=== PATIENT | female | born 1975 | race Caucasian/White ===

== ENCOUNTER 2017-11-24 00:12 | Emergency (ER) | payer MEDICAID ==
[~2017-11-24] VITALS: Ht 165.1 cm; Wt 102.1 kg
[2017-11-24 00:16] VITALS: BP 165/95
[2017-11-24] MEDS ORDERED: DICYCLOMINE HCL LIQUID 20 MG, ALUMINUM HYD/MAG/SIMETHICONE 30 ML, LIDOCAINE VISCOUS 2% ... PO ONE ×3 (01:20)
[2017-11-24 02:31] LABS: ALBUMIN 3.6 g/dL (3.4-5.0); ANION GAP 17.9 (8-16); CARBON DIOXIDE 23.2 mmol/L (21-32); POTASSIUM 4.1 mmol/L (3.5-5.1); TOTAL BILIRUBIN 0.1 mg/dL (0.0-1.0)
[2017-11-24 02:34] LABS: BASOPHILS # (AUTO) 0.1 K/uL (0.00-0.22); BASOPHILS % (AUTO) 1.2 % (0.0-2.0); EOSINOPHILS # (AUTO) 0.2 K/uL (0-0.4); EOSINOPHILS % (AUTO) 2.8 % (0.0-4.0); HEMOGLOBIN 10.5 g/dL (12.0-16.0); LYMPHOCYTES # (AUTO) 2.2 K/uL (2.5-16.5); LYMPHOCYTES % (AUTO) 32.7 % (20.5-51.1); MEAN CORPUSCULAR HEMOGLOBIN 16 pg (27-31); MEAN CORPUSCULAR HGB CONC 19 g/dL (33-37); MEAN CORPUSCULAR VOLUME 83.8 fL (80-94); MONOCYTES # (AUTO) 0.3 K/uL (0.8-1.0); MONOCYTES % (AUTO) 5.1 % (1.7-9.3); NEUTROPHILS # (AUTO) 3.9 K/uL (1.8-7.7); NEUTROPHILS % (AUTO) 58.2 % (42.2-75.2); PLATELET COUNT (AUTO) 340 K/uL (140-450); RED BLOOD CELL COUNT(AUTO) 6.48 MIL/uL (4.20-5.40); WHITE BLOOD COUNT (AUTO) 6.7 K/uL (4.8-10.8)
[2017-11-24 02:38] LABS: CREATINE KINASE MB 0.7 ng/mL (0-3.6)
[2017-11-24 02:41] LABS: HEMATOCRIT 31.5 % (36-48)
[2017-11-24] MEDS ORDERED: ONDANSETRON 4 MG ODT PO ONE (02:45)
[2017-11-24] MEDS ORDERED: NACL 0.9% 2,000 ML IV ONE (02:45)
[2017-11-24] MEDS ORDERED: INSULIN REGULAR, HUMAN 100 UNIT/ML VIAL IVP ONE (03:10)
[2017-11-24 05:50] VITALS: BP 113/59
== END 2017-11-24 05:50 | disposition home or self-care (01) ==
LOC: MED 00:12
DX: J20.9 Acute bronchitis, unspecified (principal); E11.65 Type 2 diabetes mellitus with hyperglycemia; I10 Essential (primary) hypertension; F03.90 Unspecified dementia, unspecified severity, without behavioral disturbance, psychotic disturbance, mood disturbance, and anxiety
CPT/HCPCS: 36415; 71045; 76705; 80053; 81002; 81025; 82550; 82553; 82948; 83690; 83880; 84484; 85025; 85379; 93005; 96361; 96374; 99285; J1815; J7030; Q0092; S0119

== ENCOUNTER 2018-10-04 15:55 | Emergency (ER) | payer MEDICAID ==
[~2018-10-04] VITALS: Ht 162.6 cm; Wt 103.0 kg
[2018-10-04 16:26] VITALS: BP 148/86
--- NOTE | 2018-10-04 16:35 | NUR ---
Note undone in EDM - 10/04/18 at 1649 by [facility] BIB SIGNIFICANT OTHER. AAO X4 C/O MID ABD PAIN OF 7/10 SINCE LAST NIGHT WITH VOMITING THIS MORNING X 3 EPISODES, + NAUSEA, - DIARRHEA, LBM: 10/04/18 AND PAIN IN JG LEG PAIN OF 01/16. PT STATES POUNDING HEADACHE OF 02/16. DENIES SOB. HOB UP. BED SIDE RAILS UP X1. ON LOW BED POSITION, LOCKED. MD PIÑA MADE AWARE OF PT STATUS.
--- NOTE | 2018-10-04 16:38 | NUR ---
Patient ambulated to bed 6. RN evaluating patient at bedside.
--- NOTE | 2018-10-04 16:38 | NUR ---
BIB SIGNIFICANT OTHER. AAO X4 C/O MID ABD PAIN OF 7/10 SINCE LAST NIGHT WITH VOMITING THIS MORNING X 3 EPISODES, + NAUSEA, - DIARRHEA, LBM: 10/04/18 AND PAIN IN JG LEG PAIN OF 01/16. PT STATES POUNDING HEADACHE OF 02/16. DENIES SOB. HOB UP. BED SIDE RAILS UP X1. ON LOW BED POSITION, LOCKED. ER MADE AWARE OF PT STATUS.
--- NOTE | 2018-10-04 17:09 | NUR ---
Dr. Willett evaluating patient at bedside.
[2018-10-04] MEDS ORDERED: NACL 0.9% 1,000 ML IV SCH (17:19)
[2018-10-04] MEDS ORDERED: NACL 0.9% 1,000 ML IV ONE (17:19)
[2018-10-04] MEDS ORDERED: KETOROLAC 30 MG/ML VIAL IVP ONE (17:20)
[2018-10-04] MEDS ORDERED: MORPHINE SULFATE 4 MG/ML SYR IVP ONE (17:20)
[2018-10-04] MEDS ORDERED: PROMETHAZINE 25 MG/ML VIAL IM ONE (17:20)
[2018-10-04 17:39] LABS: APPEARANCE,URINE HAZY (CLEAR); BILIRUBIN,URINE 1+ (NEGATIVE); BLOOD, URINE NEGATIVE (NEGATIVE); COLOR,URINE YELLOW (YELLOW); LEUKOCYTE ESTERASE ,URINE NEGATIVE (NEGATIVE); NITRITE, URINE NEGATIVE (NEGATIVE); UGLUCOSE 3+ (NEGATIVE)
[2018-10-04 18:01] LABS: BASOPHILS % (AUTO) 0.4 % (0.0-2.0); EOSINOPHILS # (AUTO) 0.1 K/uL (0-0.4); EOSINOPHILS % (AUTO) 0.8 % (0.0-4.0); HEMATOCRIT 42.9 % (36-48); HEMOGLOBIN 14.5 g/dL (12.0-16.0); LYMPHOCYTES # (AUTO) 1.8 K/uL (2.5-16.5); LYMPHOCYTES % (AUTO) 21.5 % (20.5-51.1); MEAN CORPUSCULAR HEMOGLOBIN 28 pg (27-31); MEAN CORPUSCULAR HGB CONC 34 g/dL (33-37); MEAN CORPUSCULAR VOLUME 82.9 fL (80-94); MONOCYTES # (AUTO) 0.4 K/uL (0.8-1.0); MONOCYTES % (AUTO) 4.9 % (1.7-9.3); NEUTROPHILS # (AUTO) 6.2 K/uL (1.8-7.7); NEUTROPHILS % (AUTO) 72.4 % (42.2-75.2); PLATELET COUNT (AUTO) 269 K/uL (140-450); RED BLOOD CELL COUNT(AUTO) 5.18 MIL/uL (4.20-5.40); RED CELL DISTRIBUTION WIDTH 14.2 % (11.6-13.7); WHITE BLOOD COUNT (AUTO) 8.6 K/uL (4.8-10.8)
[2018-10-04 18:14] LABS: ANION GAP 12.6 (8-16); CARBON DIOXIDE 26.3 mmol/L (21-32); CREATININE 0.7 mg/dL (0.6-1.3); POTASSIUM 3.9 mmol/L (3.5-5.1)
[2018-10-04 18:19] LABS: ALBUMIN 3.6 g/dL (3.4-5.0); TOTAL BILIRUBIN 0.3 mg/dL (0.0-1.0)
--- NOTE | 2018-10-04 19:15 | NUR ---
Pt report given to BOYD Hartley. Transfer of care at this time.
--- NOTE | 2018-10-04 19:31 | NUR ---
IV removed, catheter intact and site benign. Applied folded 4x4 gauze and tape to stop bleeding.
--- NOTE | 2018-10-04 19:31 | NUR ---
Patient discharged with v/s stable. Written and verbal after care instructions given and explained. Patient alert, oriented and verbalized understanding of instructions. Ambulatory with steady gait. All questions addressed prior to discharge. ID band removed. Patient advised to follow up with PMD. Rx of FAMOTIDINE, PROTONIX, REGLAN given. Patient educated on indication of medication including possible reaction and side effects. Opportunity to ask questions provided and answered.
[2018-10-04 19:33] VITALS: BP 140/78
== END 2018-10-04 19:31 | disposition home or self-care (01) ==
LOC: MED 15:55
DX: K29.70 Gastritis, unspecified, without bleeding (principal); E11.43 Type 2 diabetes mellitus with diabetic autonomic (poly)neuropathy; K31.84 Gastroparesis; I10 Essential (primary) hypertension; Z90.49 Acquired absence of other specified parts of digestive tract
CPT/HCPCS: 36415; 74176; 80053; 81003; 81025; 82150; 82948; 83690; 85025; 96361; 96372; 96374; 96375; 99284; J1885; J2270; J2550; J7030

== ENCOUNTER 2019-03-03 20:36 | Emergency (ER) | payer MEDICAID ==
[~2019-03-03] VITALS: Ht 165.1 cm; Wt 102.5 kg
[2019-03-03 20:58] VITALS: BP 129/88
--- NOTE | 2019-03-03 21:13 | NUR ---
PT AMBULATED TO BED 07 WITH STEADY GAIT.
--- NOTE | 2019-03-03 21:25 | NUR ---
PA AT BEDSIDE EVAUATING PATIENT.
[2019-03-03] MEDS ORDERED: ONDANSETRON 4 MG ODT PO ONE (21:30)
[2019-03-03] MEDS ORDERED: HYDROcodone/APAP 5/325 MG 1 TAB TAB PO ONE (21:30)
[2019-03-03] MEDS ORDERED: cefTRIAXone 1,000 MG in LIDOCAINE MPF 1% - 5 mL VIAL 2.1 ML IM ONE (21:30)
--- NOTE | 2019-03-03 21:32 | NUR ---
PT WOUND COVERED WITH NON ADHERENT DRESSING, THEN COVERED WITH ISLAND WOUND DRESSING
--- NOTE | 2019-03-03 21:32 | NUR ---
43 Y/O FEMALE BIB DAUGHTER C/P OPEN, DRAINING ABSCESS TO RIGHT CREASE BETWEEN GROIN AND THIGH. ABCESS WIH DRAINAGE NOTED ON UPPER RIGHT BETWEN THIGH AND GROIN. PAIN IS A 8/10 SHARP PAIN WITH NOTED SURROUNDING ERYTHEMA. PA/ERMD MADE AWARE OF STATUS. SIDE RAILX1. PATIENT IS A/O X4 AND IS CALM AND COOPERATIVE. PMH-- DMII, HTN RX-- [facility]US
[2019-03-03 22:10] VITALS: BP 125/79
--- NOTE | 2019-03-03 22:10 | NUR ---
Patient discharged with v/s stable. Written and verbal after care instructions given and explained. Patient alert, oriented and verbalized understanding of instructions. Ambulatory with steady gait. All questions addressed prior to discharge. ID band removed. Patient advised to follow up with PMD. Rx of IBUPROFEN 600MG; KEFELX 500MG; PROMETHAZINE DM 6.25MG-15MG/5ML; 1-2TSP;BACTRIM DS 800-160MG 1 TAB given. Patient educated on indication of medication including possible reaction and side effects. Opportunity to ask questions provided and answered.
== END 2019-03-03 22:10 | disposition home or self-care (01) ==
LOC: MED 20:36
DX: L02.214 Cutaneous abscess of groin (principal); L03.818 Cellulitis of other sites; E11.9 Type 2 diabetes mellitus without complications; I10 Essential (primary) hypertension
CPT/HCPCS: 96372; 99283; J0696; J2001; Q0162

== ENCOUNTER 2019-07-02 21:10 | Emergency (ER) | payer MEDICAID ==
[~2019-07-02] VITALS: Ht 165.1 cm; Wt 103.4 kg
[2019-07-02 22:08] VITALS: BP 152/89
[2019-07-03] MEDS ORDERED: IBUPROFEN 800 MG TAB PO ONE (00:45)
--- NOTE | 2019-07-03 01:35 | NUR ---
PT AMBULATED TO BED #10
--- NOTE | 2019-07-03 01:42 | NUR ---
43 Y/O FEMALE PRESENTS TO ED, C/O RIGHT TOE PAIN. PT STATES HAVING LAPTOP FALL ON RIGHT BIG TOE. LIMITED ROM ON AFFECTED TOE DUE TO PAIN. ABLE TO AMBULATE BUT WITH PAIN. BRUISING NOTED ON TOE. NO MEDICATIONS TAKEN PRIOR COMING TO ED. PT VSS. ERMD AWARE. WILL CONTINUE TO MONITOR.
[2019-07-03] MEDS ORDERED: HYDROcodone/APAP 5/325 MG 1 TAB TAB PO ONE (04:10)
--- NOTE | 2019-07-03 04:25 | NUR ---
PTS BIG AND LONG TOE WERE BUDY STRAPPED TO PREVENT MOVEMEMT. PTS PMSC WNL. PT WAS THEN GIVEN A ORTHO SHOE TO IMOBOLIZE THE FOOT.
[2019-07-03 04:30] VITALS: BP 151/73
--- NOTE | 2019-07-03 04:30 | NUR ---
PT DISCHARGED WITH PAPERWORK. EDUCATED PT REGARDING MEDICATIONS AND D/C INSTRUCTIONS. PT VERBALIZED UNDERSTANDING. TOLD PT TO FOLLOW UP WITH PCP AND WHEN TO RETURN TO ED. PT STABLE CONDITION. ALL QUESTIONS ANSWERED.
== END 2019-07-03 04:30 | disposition home or self-care (01) ==
LOC: MED 21:10
DX: S90.111A Contusion of right great toe without damage to nail, initial encounter (principal); E11.9 Type 2 diabetes mellitus without complications; I10 Essential (primary) hypertension; W22.8XXA Striking against or struck by other objects, initial encounter; Y93.89 Activity, other specified; Y92.89 Other specified places as the place of occurrence of the external cause; Y99.8 Other external cause status
CPT/HCPCS: 73660; 99283

== ENCOUNTER 2019-12-21 13:39 | Emergency (ER) | payer MEDICAID ==
[~2019-12-21] VITALS: Ht 165.1 cm; Wt 104.3 kg
[2019-12-21 14:10] VITALS: BP 156/95
--- NOTE | 2019-12-21 14:22 | NUR ---
C/O DIZZINESS X 2 DAYS, ANGULO, COUGH X 3 WEEKS. BLOOD SUGAR 305,TEMP 96.9,P 87, O2SAT 97%,BP 156/95 AT THIS TIME. MED HX:DM,HTN, ASTHMA
--- NOTE | 2019-12-21 16:00 | NUR ---
ERMD EVALUATING PT AT BEDSIDE
[2019-12-21 16:39] LABS: BASOPHILS # (AUTO) 0.1 K/uL (0.00-0.22); BASOPHILS % (AUTO) 0.7 % (0.0-2.0); EOSINOPHILS # (AUTO) 0.1 K/uL (0-0.4); EOSINOPHILS % (AUTO) 1.3 % (0.0-4.0); HEMATOCRIT 44.5 % (36-48); HEMOGLOBIN 14.8 g/dL (12.0-16.0); LYMPHOCYTES # (AUTO) 2.8 K/uL (2.5-16.5); LYMPHOCYTES % (AUTO) 34.1 % (20.5-51.1); MEAN CORPUSCULAR HEMOGLOBIN 28 pg (27-31); MEAN CORPUSCULAR HGB CONC 33 g/dL (33-37); MEAN CORPUSCULAR VOLUME 84.8 fL (80-94); MONOCYTES # (AUTO) 0.4 K/uL (0.8-1.0); MONOCYTES % (AUTO) 4.4 % (1.7-9.3); NEUTROPHILS % (AUTO) 59.5 % (42.2-75.2); PLATELET COUNT (AUTO) 349 K/uL (140-450); RED BLOOD CELL COUNT(AUTO) 5.25 MIL/uL (4.20-5.40); RED CELL DISTRIBUTION WIDTH 14.2 % (11.6-13.7); WHITE BLOOD COUNT (AUTO) 8.3 K/uL (4.8-10.8)
--- NOTE | 2019-12-21 16:54 | NUR ---
PT AMB TO ER BED 11
[2019-12-21 16:58] LABS: BILIRUBIN,URINE NEGATIVE (NEGATIVE); BLOOD, URINE NEGATIVE (NEGATIVE); LEUKOCYTE ESTERASE ,URINE TRACE (NEGATIVE); NITRITE, URINE NEGATIVE (NEGATIVE); UGLUCOSE 3+ (NEGATIVE)
[2019-12-21 17:09] LABS: APPEARANCE,URINE HAZY (CLEAR); COLOR,URINE YELLOW (YELLOW)
[2019-12-21 17:10] LABS: ALBUMIN 3.8 g/dL (3.4-5.0); ANION GAP 16.1 (8-16); ASPARTATE AMINOTRANSFERASE 30 U/L (15-37); CARBON DIOXIDE 23.1 mmol/L (21-32); CHLORIDE 101 mmol/L (98-107); GFR ARICAN-AMERICAN 77 mL/min (>90); GLUCOSE 311 mg/dL (74-106); POTASSIUM 4.2 mmol/L (3.5-5.1); SODIUM SERUM 136 mmol/L (136-145); TOTAL BILIRUBIN 0.2 mg/dL (0.0-1.0); UREA NITROGEN, BLOOD 9 mg/dL (7-18)
[2019-12-21 17:15] LABS: ACETONE, SERUM NEGATIVE (NEGATIVE)
[2019-12-21 17:42] LABS: RBC,URINE NONE SEEN /HPF (0-5); WBC,URINE 0-5 /HPF (0-5); YEAST,URINE Few /HPF (None Seen)
--- NOTE | 2019-12-21 17:52 | NUR ---
UA DONE, HCG-NEG
[2019-12-21] MEDS ORDERED: NACL 0.9% 1,000 ML IV ONE (18:00)
--- NOTE | 2019-12-21 18:35 | NUR ---
PT REFUSED IV & IV FLUIDS. PT STATES " I'D RATHER GO HOME AND JUST DRINK WATER". FLOOD MADE AWARE AND WILL GATHER PT D/C PAPER
[2019-12-21 19:16] VITALS: BP 156/95
--- NOTE | 2019-12-21 19:18 | NUR ---
Patient discharged with v/s stable. Written and verbal after care instructions given and explained. Patient verbalized understanding. Ambulatory with steady gait. All questions addressed prior to discharge. Advised to follow up with PMD.
== END 2019-12-21 19:00 | disposition home or self-care (01) ==
LOC: MED 13:39
DX: E86.0 Dehydration (principal); R42 Dizziness and giddiness; E11.65 Type 2 diabetes mellitus with hyperglycemia; I10 Essential (primary) hypertension
CPT/HCPCS: 36415; 80053; 81001; 81025; 82009; 84484; 85025; 87086; 93005; 99284